=== PATIENT | female | born 1985 | race American Indian/Alaskan Native ===

== ENCOUNTER 2020-12-21 21:16 | Emergency (ER) | payer OTHER ==
[2020-12-21 23:34] VITALS: BP 158/99
[2020-12-21] MEDS ORDERED: FAMOTIDINE 20 MG TAB PO ONE (23:52)
[2020-12-22 00:59] LABS: Basophils % (Auto) 0.2 % (0.0-1.8); Eosinophils # (Auto) 0.2 K/mm3 (0.0-0.4); Eosinophils % (Auto) 2.9 % (0.0-4.3); Hematocrit 37.2 % (30.3-42.9); Hemoglobin 11.6 gm/dl (10.1-14.3); Lymphocytes # (Auto) 2.8 K/mm3 (1.2-5.4); Lymphocytes % (Auto) 35.3 % (13.4-35.0); Mean Corpuscular HGB Conc 31 % (30-34); Mean Corpuscular Volume 81 fl (79-97); Monocytes # (Auto) 0.7 K/mm3 (0.0-0.8); Monocytes % (Auto) 9.3 % (0.0-7.3); Platelet Count 303 K/mm3 (140-440); Red Blood Count 4.61 M/mm3 (3.65-5.03); Red Cell Distribution Width 13.6 % (13.2-15.2)
[2020-12-22 01:00] LABS: Calcium 9.1 mg/dL (8.4-10.2)
[2020-12-22 01:04] LABS: Alanine Aminotransferase 15 units/L (7-56); Albumin 3.2 g/dL (3.9-5)
[2020-12-22 01:07] LABS: Bilirubin,Direct < 0.2 mg/dL (0-0.2)
--- NOTE | 2020-12-22 03:19 | Emergency Department Report ---
ED General Adult HPI - General Chief complaint: Abdominal Pain Stated complaint: BLACK STOOL/LUPUS Source: patient Mode of arrival: Ambulatory Limitations: No Limitations - History of Present Illness Initial comments: Patient is a nulliparous 35-year-old -Citizen Of [place] female with history of SLE who presents to the ED with complaint of acute onset persistent intermittent black tarry stools for the last 2 days. Patient states that she has had 2 episodes of black tarry stools and suspected that she may have been having internal GI bleeding. Patient denies abdominal pain, nausea, vomiting, dizziness, syncope, dysuria, urinary frequency and urgency, vaginal bleeding, vaginal discharge, fever, chills, cough, palpitations or chest pain or shortness of breath. MD Complaint: Black tarry stools per rectuma -: Sudden, days(s) (2) Location: buttocks Radiation: non-radiation Severity scale (0 -10): 0 Consistency: intermittent Worsens with: other (Bowel movement) Associated Symptoms: denies other symptoms. denies: confusion, chest pain, cough, diaphoresis, fever/chills, headaches, loss of appetite, malaise, nausea/vomiting, rash, seizure, shortness of breath, syncope, weakness, other Treatments Prior to Arrival: none - Related Data Allergies Allergy/AdvReac Type Severity Reaction Status Date / Time acetaminophen [From Vicodin] Allergy Hives Verified 12/21/20 23:32 codeine Allergy Hives Verified 12/21/20 23:32 hydrocodone [From Vicodin] Allergy Hives Verified 12/21/20 23:32 ED Review of Systems ROS: Stated complaint: BLACK STOOL/LUPUS Other details as noted in HPI Constitutional: denies: chills, fever Eyes: denies: eye pain, eye discharge, vision change ENT: denies: ear pain, throat pain Respiratory: denies: cough, shortness of breath, wheezing Cardiovascular: denies: chest pain, palpitations Endocrine: no symptoms reported Gastrointestinal: melena (Black tarry stools per rectum). denies: abdominal pain, nausea, vomiting, diarrhea Genitourinary: denies: urgency, dysuria, frequency, hematuria, discharge, abnormal menses Musculoskeletal: denies: back pain, joint swelling, arthralgia Skin: denies: rash, lesions Neurological: denies: headache, weakness, paresthesias Psychiatric: denies: anxiety, depression Hematological/Lymphatic: denies: easy bleeding, easy bruising ED Past Medical Hx - Past Medical History Additional medical history: SLE ED Physical Exam - General Limitations: No Limitations General appearance: alert, in no apparent distress - Head Head exam: Present: atraumatic, normocephalic, normal inspection - Eye Eye exam: Present: normal appearance, PERRL, EOMI Pupils: Present: normal accommodation - ENT ENT exam: Present: normal exam, normal orophraynx, mucous membranes moist, TM's normal bilaterally, normal external ear exam - Neck Neck exam: Present: normal inspection, full ROM - Respiratory Respiratory exam: Present: normal lung sounds bilaterally. Absent: respiratory distress, wheezes, rales, rhonchi, chest wall tenderness, accessory muscle use, decreased breath sounds - Cardiovascular Cardiovascular Exam: Present: regular rate, normal rhythm, normal heart sounds. Absent: systolic murmur, diastolic murmur, rubs, gallop - GI/Abdominal GI/Abdominal exam: Present: soft, normal bowel sounds. Absent: tenderness, guarding, rebound, hyperactive bowel sounds, organomegaly - Rectal Rectal exam: Present: normal inspection, normal rectal tone, heme (-) stool, other (Female ED human service technician Ms. Plasencia present as the director of instrumental music during the rectal exam) - Extremities Exam Extremities exam: Present: normal inspection, full ROM, normal capillary refill - Back Exam Back exam: Present: normal inspection, full ROM. Absent: tenderness, CVA tenderness (R), CVA tenderness (L), muscle spasm, paraspinal tenderness - Neurological Exam Neurological exam: Present: alert, oriented X3, CN II-XII intact, normal gait, reflexes normal - Psychiatric Psychiatric exam: Present: normal affect, normal mood, anxious - Skin Skin exam: Present: warm, dry, intact, normal color. Absent: rash ED Course Vital Signs 12/21/20 23:33 Temperature 98.3 F Pulse Rate 96 H Respiratory 18 Rate Blood Pressure 158/99 O2 Sat by Pulse 100 Oximetry ED Medical Decision Making - Lab Data Result diagrams: 12/21/20 23:58 12/21/20 23:58 - Medical Decision Making This is a nulliparous 35-year-old -Citizen Of [place] female with history of SLE who presents to the ED with complaint of acute onset persistent intermittent black tarry stools for the last 2 days. Patient states that she has had 2 episodes of black tarry stools and suspected that she may have been having internal GI bleeding. In the ED, patient is alert and oriented x3 and is not in any distress with normal vital signs. Lab test results were reviewed and are all nonactionable. Fecal occult exam was negative. Patient was discharged home and advised to follow-up with her primary care physician or GI physician in 3 to 5 days for reevaluation for possible endoscopy or colonoscopy procedures. Patient was advised to return to the ED immediately if symptoms get worse. - Differential Diagnosis GI bleeding; Upper GI bleed; gastric ulcers Critical care attestation.: If time is entered above; I have spent that time in minutes in the direct care of this critically ill patient, excluding procedure time. ED Disposition Clinical Impression: Encounter for well adult exam without abnormal findings GI bleeding Qualifiers: GI bleed type/associated pathology: melena Qualified Code(s): K92.1 - Melena Disposition: 01 HOME / SELF CARE / HOMELESS Is pt being admited?: No Does the pt Need Aspirin: No Condition: Stable Instructions: Abdominal Pain (ED), Gastrointestinal Bleeding, [id number] Additional Instructions: All lab test results were reviewed and are all nonactionable. Fecal occult exam is unremarkable and negative. Therefore follow-up with your primary care physician or GI physician in 3 to 5 days for possible colonoscopy and endoscopy for further evaluation. Return to the ED immediately if symptoms get worse. Referrals: SABRINA PAPPAS [Other] - 3-5 Days ERICKSON MANRIQUEZ MD [Staff Physician] - 3-5 Days Time of Disposition: 03:19 Print Language: TONGAN
== END 2020-12-22 06:28 | disposition home or self-care (01) ==
LOC: ED 21:16
DX: K92.1 Melena (principal); Z00.01 Encounter for general adult medical examination with abnormal findings; Z88.8 Allergy status to other drugs, medicaments and biological substances; Z88.6 Allergy status to analgesic agent
CPT/HCPCS: 36415; 80048; 80076; 84703; 85025